=== PATIENT | female | born 2000 | race American Indian/Alaskan Native ===

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

== ENCOUNTER 2022-02-13 13:07 | Emergency (ER) | payer MEDICAID, OTHER ==
[2022-02-13 14:24] VITALS: BP 112/79; PULSE 109
== END 2022-02-13 15:03 | disposition home or self-care (01) ==
LOC: DL.ED 13:07
DX: S82.831A Other fracture of upper and lower end of right fibula, initial encounter for closed fracture (principal)
CPT/HCPCS: 29515; 73610-RT; 99283

== ENCOUNTER 2022-07-10 03:09 | Emergency (ER) | payer MEDICAID, OTHER ==
[2022-07-10] MEDS ORDERED: Ondansetron 4 MG Tab.DIS PO ONE (03:10)
[2022-07-10] MEDS ORDERED: Sodium Chloride 0.9% 10 ML Syringe FLUSH PRN (03:27)
[2022-07-10 03:31] VITALS: BP 140/100; PULSE 108
[2022-07-10] MEDS ORDERED: Sodium Chloride 0.9% 1,000 ML IV ONE (03:42)
[2022-07-10] MEDS ORDERED: Ondansetron 4 MG/2 ML SDV IVPUSH ONE (03:42)
[2022-07-10 03:58] LABS: AMPHETAMINES,URINE NEGATIVE (NEGATIVE); BARBITURATES,URINE NEGATIVE (NEGATIVE); BENZODIAZEPINE,URINE NEGATIVE (NEGATIVE); MDMA (ECSTASY), URINE NEGATIVE (NEGATIVE); METHADONE,URINE NEGATIVE (NEGATIVE); METHAMPHETAMINES,URINE NEGATIVE (NEGATIVE); OPIATES,URINE NEGATIVE (NEGATIVE); OXYCODONE,URINE NEGATIVE (NEGATIVE); PHENCYCLIDINE,URINE NEGATIVE (NEGATIVE); TCA,URINE NEGATIVE (NEGATIVE)
[2022-07-10 04:11] LABS: ANION GAP 12.2 mEq/L (7-13); CHLORIDE,CL 103 mmol/L (98-107); SODIUM,NA 136 mmol/L (136-145)
[2022-07-10 04:15] LABS: ESTIMATED GFR 129 mL/min (>=60)
== END 2022-07-10 04:37 | disposition home or self-care (01) ==
LOC: DL.ED 03:09
DX: K52.9 Noninfective gastroenteritis and colitis, unspecified (principal)
CPT/HCPCS: 36415; 80053; 80305; 80307; 81001; 81025; 83605; 83690; 85025; 96374; 99283; 99284; A9270; J2405; J3490; J7030

== ENCOUNTER 2024-01-13 16:16 | Emergency (ER) | payer SELFPAY ==
[2024-01-13 17:38] VITALS: BP 134/94; PULSE 97
[2024-01-13] MEDS: Bacitracin Oint 1 GM U/D Packet TOP ONE (17:51)
[2024-01-13] MEDS: Lidocaine 1% 5 ML VIAL INJECT ONE (17:51)
[2024-01-13] MEDS: Diphtheria,Pertussis(Acell),Tetanus Vaccine 0.5 ML Syringe IM ONE (18:55)
== END 2024-01-13 19:02 | disposition home or self-care (01) ==
LOC: DL.ED 16:16
DX: S61.216A Laceration without foreign body of right little finger without damage to nail, initial encounter (principal); Z23 Encounter for immunization; W26.0XXA Contact with knife, initial encounter
CPT/HCPCS: 12001; 90471; 90715; 99282; A9270; J3490

== ENCOUNTER 2025-01-26 05:51 | Emergency (ER) | payer MEDICAID ==
[2025-01-26 06:12] VITALS: BP 139/91; PULSE 108
[2025-01-26] MEDS ORDERED: Sodium Chloride 0.9% 10 ML Syringe FLUSH PRN (06:13)
[2025-01-26] MEDS ORDERED: Ketamine 500 mg/10 ML MDV IVPUSH ONE (06:14)
[2025-01-26] MEDS: Ketamine 500 mg/10 ML MDV IV ONE (06:31)
== END 2025-01-26 07:18 | disposition home or self-care (01) ==
LOC: DL.ED 05:51
DX: S52.512A Displaced fracture of left radial styloid process, initial encounter for closed fracture (principal); E66.9 Obesity, unspecified; F17.210 Nicotine dependence, cigarettes, uncomplicated; W08.XXXA Fall from other furniture, initial encounter
CPT/HCPCS: 25605; 73100; 73110; 99152; 99283; J3490